=== PATIENT | male | born 1950 | race Caucasian/White ===

== ENCOUNTER 2023-11-23 12:14 | Emergency (ER) | payer OTHER ==
[~2023-11-23] VITALS: Ht 185.4 cm; Wt 113.4 kg
[2023-11-23] MEDS ORDERED: OXYC5 PO (12:37)
== END 2023-11-23 12:40 | disposition home or self-care (01) ==
LOC: ER 12:14
DX: Z76.0 Encounter for issue of repeat prescription (principal); Z87.39 Personal history of other diseases of the musculoskeletal system and connective tissue; Z88.0 Allergy status to penicillin
CPT/HCPCS: 99281